=== PATIENT | female | born 1935 | race Caucasian/White ===

== ENCOUNTER 2023-09-07 15:44 | Emergency (ER) | payer BC, MEDICARE ==
[2023-09-07 17:23] LABS: BASOPHILS ABSOLUTE AUTO 0.02 K/uL (0.00-0.20); BASOPHILS PERCENT AUTO 0.3 % (0.0-1.0); EOSINOPHILS ABSOLUTE AUTO 0.03 K/uL (0.00-0.45); EOSINOPHILS PERCENT AUTO 0.4 % (0.0-6.0); HEMATOCRIT 41.6 % (37.0-47.0); HEMOGLOBIN 13.7 g/dL (12.0-16.0); IMMATURE GRAN ABSOLUTE AUTO 0.16 K/uL (0.00-0.05); IMMATURE GRAN PERCENT AUTO 2.3 % (0.0-0.4); LYMPHOCYTES PERCENT AUTO 18.5 % (24.0-44.0); MEAN CORPUSCULAR HEMOGLOBIN 32.1 pg (28.0-32.0); MEAN CORPUSCULAR HGB CONC 32.9 g/dL (32.0-36.0); MEAN CORPUSCULAR VOLUME 97.4 fL (83.0-99.0); MEAN PLATELET VOLUME 11.9 fL (9.4-12.3); MONOCYTES ABSOLUTE AUTO 1.53 K/uL (0.00-0.80); MONOCYTES PERCENT AUTO 21.8 % (0.0-8.0); NEUTROPHILS ABSOLUTE AUTO 3.97 K/uL (1.80-7.70); NEUTROPHILS PERCENT AUTO 56.7 % (41.0-71.0); PLATELET COUNT,PLT 122 K/uL (150-400); RED BLOOD CELL COUNT 4.27 M/uL (4.10-5.30); WHITE BLOOD CELL COUNT,WBC 7.01 K/uL (3.9-11.3)
[2023-09-07] MEDS: Sodium Chloride 0.9% 1,000 ML IV ONE (17:29)
[2023-09-07 17:48] LABS: A/G RATIO 0.9 (0.9-1.6); ALBUMIN 3.6 g/dL (3.4-5.0); BILIRUBIN TOTAL 0.4 mg/dL (0.2-1.0); CARBON DIOXIDE,CO2 27.8 mmol/L (21.0-32.0); CREATININE 0.9 mg/dL (0.6-1.0); EST CRCL DRUG DOSING (CG) 41.23 mL/min; POTASSIUM,K 4.6 mmol/L (3.5-5.1); PROTEIN TOTAL,TP 7.5 g/dL (6.4-8.2)
[2023-09-07 17:58] LABS: INR 1.06 (0.86-1.11); PTT,PARTIAL THROMBOPLSTIN TIME 27.2 SEC (23.9-30.7)
[2023-09-07 18:12] LABS: TSH ULTRASENSITIVE 1.56 uIU/mL (0.36-3.74)
[2023-09-07] MEDS: Iopamidol 755 MG/ML 500 ML Multipack Bottle IVPUSH STA (19:07)
[2023-09-07] MEDS: Tranexamic Acid IN NACL,ISO-OS 1,000 MG in Premix Bag 1 BAG IV SCH (21:23)
[2023-09-07] MEDS: Tranexamic Acid IN NACL,ISO-OS 1,000 MG in Premix Bag 1 BAG IV ONE (22:00)
[2023-09-07 22:48] LABS: CORONAVIRUS COVID-19 NAA NEGATIVE (NEGATIVE); INFLUENZA A NAA NEGATIVE (NEGATIVE); INFLUENZA B NAA NEGATIVE (NEGATIVE); RESPIRATORY SYNCYTIAL VIR NAA NEGATIVE (NEGATIVE)
[2023-09-07 23:56] LABS: HEMATOCRIT 38.2 % (37.0-47.0); HEMOGLOBIN 12.9 g/dL (12.0-16.0); MEAN CORPUSCULAR HEMOGLOBIN 32.6 pg (28.0-32.0); MEAN CORPUSCULAR HGB CONC 33.8 g/dL (32.0-36.0); MEAN CORPUSCULAR VOLUME 96.5 fL (83.0-99.0); MEAN PLATELET VOLUME 12.7 fL (9.4-12.3); PLATELET COUNT,PLT 112 K/uL (150-400); RED BLOOD CELL COUNT 3.96 M/uL (4.10-5.30)
[2023-09-08 00:41] LABS: BASOPHILS ABSOLUTE MAN 0.06 K/uL (0.00-0.20); BASOPHILS PERCENT MAN 1 % (0-1); EOSINOPHILS ABSOLUTE MAN 0.06 K/uL (0.00-0.45); EOSINOPHILS PERCENT MAN 1 % (0-6); LYMPHOCYTES PERCENT MAN 19 % (24-44); MONOCYTES ABSOLUTE MAN 0.87 K/uL (0.00-0.80); MONOCYTES PERCENT MAN 15 % (0-8); SEG NEUTROPHILS ABSOLUTE MAN 3.71 K/uL (1.80-7.70); SEG NEUTROPHILS PERCENT MAN 64 % (41-71)
== END 2023-09-08 02:44 ==
LOC: MW.ED 15:44
DX: N85.9 Noninflammatory disorder of uterus, unspecified (principal); N93.9 Abnormal uterine and vaginal bleeding, unspecified; I10 Essential (primary) hypertension; E78.00 Pure hypercholesterolemia, unspecified; Z79.899 Other long term (current) drug therapy
CPT/HCPCS: 0241U; 36415; 74177; 80053; 84443; 85025; 85610; 85730; 86850; 86900; 86901; 96361; 96365; 96366; 96376; 99285; J7030; Q9967; 99284; J3490

== ENCOUNTER 2023-10-30 15:34 | Inpatient (IN) | payer MEDICARE, OTHER ==
[2023-10-30 16:03] LABS: HEMATOCRIT 17.6 % (37.0-47.0); HEMOGLOBIN 5.2 g/dL (12.0-16.0); MEAN CORPUSCULAR HEMOGLOBIN 28.4 pg (28.0-32.0); MEAN CORPUSCULAR HGB CONC 29.5 g/dL (32.0-36.0); MEAN CORPUSCULAR VOLUME 96.2 fL (83.0-99.0); MEAN PLATELET VOLUME 10.4 fL (9.4-12.3); NRBC ABSOLUTE 0.04 K/uL (0.00-0.02); NRBC PERCENT 0.6 /100WBC (0.0-0.2); PLATELET COUNT,PLT 197 K/uL (150-400); RED BLOOD CELL COUNT 1.83 M/uL (4.10-5.30); WHITE BLOOD CELL COUNT,WBC 6.73 K/uL (3.9-11.3)
[2023-10-30] MEDS: Sodium Chloride 0.9% 10 ML Syringe FLUSH PRN (16:05)
[2023-10-30] MEDS: Sodium Chloride 0.9% 2.5 ML Syringe FLUSH PRN (16:06)
[2023-10-30 16:35] LABS: BASOPHILS ABSOLUTE MAN 0.13 K/uL (0.00-0.20); BASOPHILS PERCENT MAN 2 % (0-1); EOSINOPHILS PERCENT MAN 3 % (0-6); LYMPHOCYTES ABSOLUTE MAN 0.47 K/uL (1.00-4.80); LYMPHOCYTES PERCENT MAN 7 % (24-44); MONOCYTES ABSOLUTE MAN 0.81 K/uL (0.00-0.80); MONOCYTES PERCENT MAN 12 % (0-8); SEG NEUTROPHILS ABSOLUTE MAN 5.11 K/uL (1.80-7.70); SEG NEUTROPHILS PERCENT MAN 76 % (41-71)
[2023-10-30 16:48] LABS: INR 1.04 (0.86-1.11); PTT,PARTIAL THROMBOPLSTIN TIME 23.9 SEC (23.9-30.7)
[2023-10-30 17:10] LABS: CREATININE 1.1 mg/dL (0.6-1.0); EST CRCL DRUG DOSING (CG) 33.73 mL/min
[2023-10-30 17:21] LABS: A/G RATIO 0.8 (0.9-1.6); BILIRUBIN TOTAL 0.2 mg/dL (0.2-1.0); CALCIUM 8.9 mg/dL (8.5-10.1); CARBON DIOXIDE,CO2 25.6 mmol/L (21.0-32.0); MAGNESIUM 2.5 mg/dL (1.8-2.4); POTASSIUM,K 5.2 mmol/L (3.5-5.1); PROTEIN TOTAL,TP 6.8 g/dL (6.4-8.2); TSH ULTRASENSITIVE 2.91 uIU/mL (0.36-3.74)
[2023-10-30] MEDS: Carboxymethylcellulose Sodium 0.5% Ophth Soln 0.4 ML UD Box of 30 EYEBOTH SCH (17:53)
[2023-10-30] MEDS: Iopamidol 755 MG/ML 500 ML Multipack Bottle IVPUSH STA (18:34)
[2023-10-30] MEDS ORDERED: Polyethylene Glycol 3350 Powder 17 GM Packet PO PRN (20:22)
[2023-10-30] MEDS ORDERED: Ondansetron 4 MG/2 ML SDV IVPUSH PRN (20:22)
[2023-10-30] MEDS ORDERED: Albuterol/Ipratropium 3.0-0.5 MG/3 ML Neb Soln NEB PRN (20:22)
[2023-10-31 05:52] LABS: HEMATOCRIT 23.3 % (37.0-47.0); HEMOGLOBIN 7.2 g/dL (12.0-16.0); MEAN CORPUSCULAR HEMOGLOBIN 28.7 pg (28.0-32.0); MEAN CORPUSCULAR HGB CONC 30.9 g/dL (32.0-36.0); MEAN CORPUSCULAR VOLUME 92.8 fL (83.0-99.0); MEAN PLATELET VOLUME 10.7 fL (9.4-12.3); NRBC ABSOLUTE 0.02 K/uL (0.00-0.02); NRBC PERCENT 0.3 /100WBC (0.0-0.2); PLATELET COUNT,PLT 159 K/uL (150-400); RED BLOOD CELL COUNT 2.51 M/uL (4.10-5.30); WHITE BLOOD CELL COUNT,WBC 5.76 K/uL (3.9-11.3)
[2023-10-31 06:03] LABS: CALCIUM 8.6 mg/dL (8.5-10.1); CARBON DIOXIDE,CO2 26.5 mmol/L (21.0-32.0); EST CRCL DRUG DOSING (CG) 37.1 mL/min; MAGNESIUM 2.2 mg/dL (1.8-2.4); POTASSIUM,K 4.8 mmol/L (3.5-5.1)
[2023-10-31 06:33] LABS: LYMPHOCYTES ABSOLUTE MAN 0.81 K/uL (1.00-4.80); LYMPHOCYTES PERCENT MAN 14 % (24-44)
[2023-10-31 06:34] LABS: EOSINOPHILS ABSOLUTE MAN 0.12 K/uL (0.00-0.45); EOSINOPHILS PERCENT MAN 2 % (0-6); MONOCYTES ABSOLUTE MAN 1.67 K/uL (0.00-0.80); MONOCYTES PERCENT MAN 29 % (0-8); SEG NEUTROPHILS ABSOLUTE MAN 3.17 K/uL (1.80-7.70); SEG NEUTROPHILS PERCENT MAN 55 % (41-71)
[2023-10-31 06:41] LABS: ANISOCYTOSIS FEW
[2023-10-31] MEDS: prednisoLONE Acetate 1% Ophth Susp 5 ML Bottle EYEBOTH SCH (08:35)
[2023-10-31] MEDS: Carboxymethylcellulose Sodium 0.5% Ophth Soln 0.4 ML UD Box of 30 EYEBOTH SCH (08:38)
[2023-10-31] MEDS ORDERED: prednisoLONE Acetate 1% Ophth Susp 5 ML Bottle EYEBOTH SCH (09:00)
[2023-10-31] MEDS: Phenazopyridine 200 MG Tab PO PRN (09:36)
[2023-10-31 09:54] LABS: APPEARANCE,URINE CLOUDY; BILIRUBIN,URINE NEGATIVE (NEGATIVE); COLOR,URINE YELLOW; GLUCOSE,URINE NEGATIVE (NEGATIVE); KETONES,URINE NEGATIVE (NEGATIVE); LEUKOCYTE ESTERASE,URINE LARGE (NEGATIVE); NITRITE,URINE POSITIVE (NEGATIVE); OCCULT BLOOD,URINE LARGE (NEGATIVE); PROTEIN,URINE 30 mg/dL (NEGATIVE); UROBILINOGEN,URINE 0.2 EU/dL (<2.0)
[2023-10-31 10:18] LABS: BACTERIA,URINE MANY (NEGATIVE); EPITHELIAL CELLS,URINE RARE (NONE-FEW); RBC,URINE 15-20 (0-2/HPF); TRIPLE PHOSPHATE CRYSTALS,UR MANY (NEGATIVE)
[2023-10-31] MEDS: cefTRIAXone 1 GM in Sodium Chloride 0.9% 50 ML IV SCH (11:26)
[2023-10-31 12:04] LABS: HEMATOCRIT 25.2 % (37.0-47.0); MEAN CORPUSCULAR HEMOGLOBIN 29.4 pg (28.0-32.0); MEAN CORPUSCULAR HGB CONC 31.7 g/dL (32.0-36.0); MEAN CORPUSCULAR VOLUME 92.6 fL (83.0-99.0); MEAN PLATELET VOLUME 10.4 fL (9.4-12.3); NRBC ABSOLUTE 0.03 K/uL (0.00-0.02); NRBC PERCENT 0.5 /100WBC (0.0-0.2); PLATELET COUNT,PLT 177 K/uL (150-400); RED BLOOD CELL COUNT 2.72 M/uL (4.10-5.30); WHITE BLOOD CELL COUNT,WBC 6.26 K/uL (3.9-11.3)
[2023-10-31 12:37] LABS: SEG NEUTROPHILS ABSOLUTE MAN 3.51 K/uL (1.80-7.70); SEG NEUTROPHILS PERCENT MAN 56 % (41-71)
[2023-10-31 12:38] LABS: EOSINOPHILS ABSOLUTE MAN 0.13 K/uL (0.00-0.45); EOSINOPHILS PERCENT MAN 2 % (0-6); LYMPHOCYTES ABSOLUTE MAN 1.25 K/uL (1.00-4.80); LYMPHOCYTES PERCENT MAN 20 % (24-44); MONOCYTES ABSOLUTE MAN 1.38 K/uL (0.00-0.80); MONOCYTES PERCENT MAN 22 % (0-8)
[2023-10-31 16:30] LABS: HEMATOCRIT 22.4 % (37.0-47.0); HEMOGLOBIN 7.1 g/dL (12.0-16.0)
[2023-10-31 19:11] LABS: HEMATOCRIT 21.9 % (37.0-47.0)
[2023-10-31] MEDS: atorvaSTATin 20 MG Tab PO SCH (20:16)
[2023-10-31] MEDS: Latanoprost 0.005% Ophth Soln 2.5 ML Bottle EYEBOTH SCH (22:03)
[2023-11-01 01:02] LABS: HEMATOCRIT 24.1 % (37.0-47.0); HEMOGLOBIN 7.7 g/dL (12.0-16.0)
[2023-11-01 06:38] LABS: HEMATOCRIT 24.6 % (37.0-47.0); HEMOGLOBIN 7.8 g/dL (12.0-16.0); MEAN CORPUSCULAR HEMOGLOBIN 28.8 pg (28.0-32.0); MEAN CORPUSCULAR HGB CONC 31.7 g/dL (32.0-36.0); MEAN CORPUSCULAR VOLUME 90.8 fL (83.0-99.0); MEAN PLATELET VOLUME 10.3 fL (9.4-12.3); NRBC ABSOLUTE 0.02 K/uL (0.00-0.02); NRBC PERCENT 0.3 /100WBC (0.0-0.2); PLATELET COUNT,PLT 151 K/uL (150-400); RED BLOOD CELL COUNT 2.71 M/uL (4.10-5.30); WHITE BLOOD CELL COUNT,WBC 7.23 K/uL (3.9-11.3)
[2023-11-01 07:00] LABS: A/G RATIO 0.7 (0.9-1.6); ALBUMIN 2.5 g/dL (3.4-5.0); BILIRUBIN TOTAL 0.3 mg/dL (0.2-1.0); CALCIUM 8.6 mg/dL (8.5-10.1); CARBON DIOXIDE,CO2 27.6 mmol/L (21.0-32.0); CREATININE 0.8 mg/dL (0.6-1.0); EST CRCL DRUG DOSING (CG) 46.38 mL/min; POTASSIUM,K 4.6 mmol/L (3.5-5.1)
[2023-11-01 07:02] LABS: BASOPHILS ABSOLUTE MAN 0.07 K/uL (0.00-0.20); BASOPHILS PERCENT MAN 1 % (0-1); EOSINOPHILS ABSOLUTE MAN 0.07 K/uL (0.00-0.45); EOSINOPHILS PERCENT MAN 1 % (0-6); LYMPHOCYTES ABSOLUTE MAN 1.16 K/uL (1.00-4.80); LYMPHOCYTES PERCENT MAN 16 % (24-44); MONOCYTES ABSOLUTE MAN 2.24 K/uL (0.00-0.80); MONOCYTES PERCENT MAN 31 % (0-8); SEG NEUTROPHILS ABSOLUTE MAN 3.69 K/uL (1.80-7.70); SEG NEUTROPHILS PERCENT MAN 51 % (41-71)
[2023-11-01 13:08] LABS: HEMATOCRIT 24.5 % (37.0-47.0); HEMOGLOBIN 7.8 g/dL (12.0-16.0)
[2023-11-01] MEDS: prednisoLONE Acetate 1% Ophth Susp 5 ML Bottle EYERT SCH (22:20)
[2023-11-02 06:08] LABS: HEMATOCRIT 24.7 % (37.0-47.0); HEMOGLOBIN 7.7 g/dL (12.0-16.0); MEAN CORPUSCULAR HEMOGLOBIN 29.1 pg (28.0-32.0); MEAN CORPUSCULAR HGB CONC 31.2 g/dL (32.0-36.0); MEAN CORPUSCULAR VOLUME 93.2 fL (83.0-99.0); MEAN PLATELET VOLUME 10.4 fL (9.4-12.3); PLATELET COUNT,PLT 155 K/uL (150-400); RED BLOOD CELL COUNT 2.65 M/uL (4.10-5.30); WHITE BLOOD CELL COUNT,WBC 5.74 K/uL (3.9-11.3)
[2023-11-02 06:35] LABS: A/G RATIO 0.6 (0.9-1.6); ALBUMIN 2.4 g/dL (3.4-5.0); BILIRUBIN TOTAL 0.2 mg/dL (0.2-1.0); CALCIUM 8.5 mg/dL (8.5-10.1); CARBON DIOXIDE,CO2 26.8 mmol/L (21.0-32.0); CREATININE 0.7 mg/dL (0.6-1.0); EST CRCL DRUG DOSING (CG) 53.01 mL/min; POTASSIUM,K 4.3 mmol/L (3.5-5.1); PROTEIN TOTAL,TP 6.2 g/dL (6.4-8.2)
[2023-11-02 06:50] LABS: LYMPHOCYTES ABSOLUTE MAN 0.86 K/uL (1.00-4.80); LYMPHOCYTES PERCENT MAN 15 % (24-44); SEG NEUTROPHILS ABSOLUTE MAN 2.41 K/uL (1.80-7.70); SEG NEUTROPHILS PERCENT MAN 42 % (41-71)
[2023-11-02 06:51] LABS: EOSINOPHILS ABSOLUTE MAN 0.29 K/uL (0.00-0.45); EOSINOPHILS PERCENT MAN 5 % (0-6); MONOCYTES ABSOLUTE MAN 2.18 K/uL (0.00-0.80); MONOCYTES PERCENT MAN 38 % (0-8)
[2023-11-03 06:31] LABS: HEMATOCRIT 25.9 % (37.0-47.0); HEMOGLOBIN 7.9 g/dL (12.0-16.0); MEAN CORPUSCULAR HEMOGLOBIN 29.2 pg (28.0-32.0); MEAN CORPUSCULAR HGB CONC 30.5 g/dL (32.0-36.0); MEAN CORPUSCULAR VOLUME 95.6 fL (83.0-99.0); MEAN PLATELET VOLUME 10.5 fL (9.4-12.3); PLATELET COUNT,PLT 151 K/uL (150-400); RED BLOOD CELL COUNT 2.71 M/uL (4.10-5.30); WHITE BLOOD CELL COUNT,WBC 5.65 K/uL (3.9-11.3)
[2023-11-03 06:54] LABS: A/G RATIO 0.6 (0.9-1.6); ALBUMIN 2.4 g/dL (3.4-5.0); BILIRUBIN TOTAL 0.2 mg/dL (0.2-1.0); CALCIUM 8.7 mg/dL (8.5-10.1); CARBON DIOXIDE,CO2 29.7 mmol/L (21.0-32.0); CREATININE 0.8 mg/dL (0.6-1.0); EOSINOPHILS ABSOLUTE MAN 0.34 K/uL (0.00-0.45); EOSINOPHILS PERCENT MAN 6 % (0-6); EST CRCL DRUG DOSING (CG) 46.38 mL/min; LYMPHOCYTES PERCENT MAN 16 % (24-44); MONOCYTES ABSOLUTE MAN 1.92 K/uL (0.00-0.80); MONOCYTES PERCENT MAN 34 % (0-8); POTASSIUM,K 4.5 mmol/L (3.5-5.1); PROTEIN TOTAL,TP 6.2 g/dL (6.4-8.2); SEG NEUTROPHILS ABSOLUTE MAN 2.49 K/uL (1.80-7.70); SEG NEUTROPHILS PERCENT MAN 44 % (41-71)
[2023-11-04 06:13] LABS: HEMATOCRIT 26.5 % (37.0-47.0); HEMOGLOBIN 8.1 g/dL (12.0-16.0); MEAN CORPUSCULAR HGB CONC 30.6 g/dL (32.0-36.0); PLATELET COUNT,PLT 152 K/uL (150-400); RED BLOOD CELL COUNT 2.79 M/uL (4.10-5.30); WHITE BLOOD CELL COUNT,WBC 6.67 K/uL (3.9-11.3)
[2023-11-04 06:47] LABS: A/G RATIO 0.6 (0.9-1.6); ALBUMIN 2.4 g/dL (3.4-5.0); BILIRUBIN TOTAL 0.1 mg/dL (0.2-1.0); CALCIUM 8.5 mg/dL (8.5-10.1); CARBON DIOXIDE,CO2 29.5 mmol/L (21.0-32.0); CREATININE 0.8 mg/dL (0.6-1.0); EST CRCL DRUG DOSING (CG) 46.38 mL/min; POTASSIUM,K 4.2 mmol/L (3.5-5.1); PROTEIN TOTAL,TP 6.4 g/dL (6.4-8.2)
[2023-11-04 07:45] LABS: LYMPHOCYTES ABSOLUTE MAN 1.47 K/uL (1.00-4.80); LYMPHOCYTES PERCENT MAN 22 % (24-44); SEG NEUTROPHILS ABSOLUTE MAN 2.93 K/uL (1.80-7.70); SEG NEUTROPHILS PERCENT MAN 44 % (41-71)
[2023-11-04 07:46] LABS: BASOPHILS ABSOLUTE MAN 0.13 K/uL (0.00-0.20); BASOPHILS PERCENT MAN 2 % (0-1); EOSINOPHILS PERCENT MAN 6 % (0-6); MONOCYTES ABSOLUTE MAN 1.73 K/uL (0.00-0.80); MONOCYTES PERCENT MAN 26 % (0-8)
[2023-11-05 05:28] LABS: HEMATOCRIT 25.8 % (37.0-47.0); HEMOGLOBIN 7.8 g/dL (12.0-16.0); MEAN CORPUSCULAR HEMOGLOBIN 28.4 pg (28.0-32.0); MEAN CORPUSCULAR HGB CONC 30.2 g/dL (32.0-36.0); MEAN CORPUSCULAR VOLUME 93.8 fL (83.0-99.0); MEAN PLATELET VOLUME 10.5 fL (9.4-12.3); PLATELET COUNT,PLT 154 K/uL (150-400); RED BLOOD CELL COUNT 2.75 M/uL (4.10-5.30); WHITE BLOOD CELL COUNT,WBC 5.62 K/uL (3.9-11.3)
[2023-11-05 05:56] LABS: A/G RATIO 0.6 (0.9-1.6); ALBUMIN 2.4 g/dL (3.4-5.0); BILIRUBIN TOTAL 0.2 mg/dL (0.2-1.0); CALCIUM 8.5 mg/dL (8.5-10.1); CARBON DIOXIDE,CO2 27.8 mmol/L (21.0-32.0); CREATININE 0.7 mg/dL (0.6-1.0); EST CRCL DRUG DOSING (CG) 53.01 mL/min; POTASSIUM,K 4.6 mmol/L (3.5-5.1); PROTEIN TOTAL,TP 6.4 g/dL (6.4-8.2)
[2023-11-05 06:04] LABS: EOSINOPHILS ABSOLUTE MAN 0.11 K/uL (0.00-0.45); EOSINOPHILS PERCENT MAN 2 % (0-6); LYMPHOCYTES ABSOLUTE MAN 0.62 K/uL (1.00-4.80); LYMPHOCYTES PERCENT MAN 11 % (24-44); MONOCYTES ABSOLUTE MAN 2.14 K/uL (0.00-0.80); MONOCYTES PERCENT MAN 38 % (0-8); SEG NEUTROPHILS ABSOLUTE MAN 2.75 K/uL (1.80-7.70); SEG NEUTROPHILS PERCENT MAN 49 % (41-71)
[2023-11-05] MEDS: Acetaminophen 325 MG Tab PO PRN (06:07)
== END 2023-11-05 12:00 | disposition home or self-care (01) | DRG 812 ==
LOC: MW.ED 15:34 → MW.MS 20:20 → OBSVTOIN 10-31 13:03 → MW.MS 10-31 15:34
PROVIDERS: ADMIT Family Medicine; ATTEND Family Medicine
PROC: 30233N1 Transfusion of Nonautologous Red Blood Cells into Peripheral Vein, Percutaneous Approach (ICD-10-PCS; principal; 2023-10-30)
PROC: 30233N1 Transfusion of Nonautologous Red Blood Cells into Peripheral Vein, Percutaneous Approach (ICD-10-PCS; 2023-10-31)
DX: D62 Acute posthemorrhagic anemia (principal); N39.0 Urinary tract infection, site not specified; C54.9 Malignant neoplasm of corpus uteri, unspecified; Z66 Do not resuscitate; Z51.5 Encounter for palliative care; I10 Essential (primary) hypertension; E78.5 Hyperlipidemia, unspecified; E78.00 Pure hypercholesterolemia, unspecified; B96.4 Proteus (mirabilis) (morganii) as the cause of diseases classified elsewhere; Z85.3 Personal history of malignant neoplasm of breast; Z79.01 Long term (current) use of anticoagulants; Z86.16 Personal history of COVID-19; Z86.711 Personal history of pulmonary embolism; Z86.718 Personal history of other venous thrombosis and embolism; Z79.899 Other long term (current) drug therapy
CPT/HCPCS: 36415 ×2; 36430; 70450; 71045; 71260; 74177; 80048; 80053; 81001; 81003; 83690; 83735 ×2; 83880; 84443; 84484; 85025 ×3; 85610; 85730; 86850; 86900; 86901; 86920 ×2; 87086; 87088; 87186; 93005; 97162; 99285; A9270 ×2; J0696; J3490 ×2; P9016 ×2; Q9967; 85014; 85018; 93010; 96365; 97110-GP; 97530-GP; 99223; 99232; 99233; 99239; 99284; G0378

== ENCOUNTER 2024-04-26 13:32 | Emergency (ER) | payer MEDICARE, BC ==
[2024-04-26] MEDS: fentaNYL 50 MCG/ML SDV IVPUSH ONE (16:08)
[2024-04-26] MEDS: Morphine 4 MG/ML Syringe IVPUSH ONE (16:58)
== END 2024-04-26 17:10 | disposition home health service (06) ==
LOC: MW.ED 13:32
DX: S72.401A Unspecified fracture of lower end of right femur, initial encounter for closed fracture (principal); I10 Essential (primary) hypertension; Z86.16 Personal history of COVID-19; E66.9 Obesity, unspecified; Z79.899 Other long term (current) drug therapy; X58.XXXA Exposure to other specified factors, initial encounter; Z68.39 Body mass index [BMI] 39.0-39.9, adult
CPT/HCPCS: 29505; 73552; 73560; 96374; 96375; 99284; J2270; J3010; 99283